=== PATIENT | female | born 1950 | race Caucasian/White ===

== ENCOUNTER 2019-04-14 13:12 | Observation (INO) ==
[2019-04-14] MEDS ORDERED: Ondansetron 4 MG/2 ML VIAL ONE (13:43)
[2019-04-14] MEDS ORDERED: Ondansetron 4 MG/2 ML VIAL IVP ONE (13:46)
[2019-04-14 13:50] LABS: Basophils # 0.1 K/mcL (0.0-0.2); Basophils % 0.7 %; Eosinophils # 0.1 K/mcL (0.0-0.6); Eosinophils % 0.9 %; Hematocrit 47.1 % (35.3-44.9); Hemoglobin 15.4 g/dL (11.5-15.4); Immature Granulocytes % 0.5 % (0-4); Lymphocytes # 2.2 K/mcL (0.6-4.6); Mean Corpuscular HGB Conc 32.7 g/dL (31.6-35.5); Mean Corpuscular Hemoglobin 29.1 pg (28.0-33.3); Mean Platelet Volume 11.4 fL (9.4-12.4); Monocytes # 0.7 K/mcL (0.0-1.3); Monocytes % 5.9 %; Platelet Count 287 K/mcL (140-400); Red Blood Count 5.29 M/mcL (3.82-4.97); Red Cell Distribution Width 14.2 % (11.5-14.5); White Blood Count 12.1 K/mcL (4.3-11.1)
[2019-04-14] MEDS: 0.9 % Sodium Chloride 1,000 ML IVC SCH ×2 (14:11→15:25)
[2019-04-14 14:27] LABS: BUN/Creatinine Ratio 17 (6-26); Blood Urea Nitrogen 16 mg/dL (8-23); Calcium 10.3 mg/dL (8.6-10.3); Carbon Dioxide 27 mEq/L (23-29); Chloride 99 mEq/L (98-107); Glucose 270 mg/dL (70-105); Osmolality,Calculated 291 (280-300); Potassium 4.3 mEq/L (3.5-5.1); Sodium 135 mEq/L (136-145); eGFR For African Americans > 60 (> 60); eGFR For Non-African Americans 59 (> 60)
[2019-04-14 14:37] LABS: Troponin I 0.03 ng/mL (< 0.04)
[2019-04-14 15:01] LABS: Bilirubin,Urine Negative (Negative); Blood,Urine Negative (Negative); Clarity,Urine Cloudy (Clear); Color,Urine Yellow (Yellow); Glucose,Urine (UA) 250 mg/dL (Normal); Ketones,Urine 15 mg/dL (Negative); Leukocyte Esterase,Urine Negative (Negative); Nitrite,Urine Negative (Negative); Protein,Urine 100 mg/dL (Neg-Trace); Specific Gravity,Urine 1.029 (1.010-1.025); Urobilinogen,Urine Normal (Normal)
[2019-04-14 15:04] LABS: Hyaline Casts,Urine None Seen per lpf (None-Few); Squamous Epithelial Cell,Urine Many per lpf (None-Few)
[2019-04-14] MEDS ORDERED: Ondansetron 4 MG/2 ML VIAL IVP STA (15:17)
[2019-04-14 15:23] LABS: Bacteria,Urine Few per hpf (None-Few)
[2019-04-14 15:24] LABS: RBC,Urine 0-3 per hpf (0-3)
[2019-04-14] MEDS ORDERED: *HR* Promethazine 25 MG/ML VIAL IVP ONE (16:35)
[2019-04-14] MEDS ORDERED: 0.9 % Sodium Chloride 1,000 ML IVC ONE (16:35)
[2019-04-14] MEDS ORDERED: *HR* HYDROcodone/Acet 10/325 mg TABLET PO ONE ×2 (16:40→20:12)
[2019-04-14] MEDS ORDERED: Naloxone 0.4 MG/ML INJ IVP PRN (18:00)
[2019-04-14] MEDS ORDERED: tiZANidine 4 MG TABLET PO PRN (18:02)
[2019-04-14] MEDS ORDERED: *HR* Labetalol 20 MG/4 ML SYRINGE IVP ONE (18:03)
[2019-04-14] MEDS ORDERED: Ondansetron 4 MG/2 ML VIAL IVP PRN (18:05)
[2019-04-14] MEDS: Gabapentin 400 MG CAPSULE PO SCH (20:08)
[2019-04-14] MEDS ORDERED: Perflutren Lipid Microsphere 1.3 ML in 0.9 % Sodium Chloride 8.7 ML IVP ONE (20:30)
[2019-04-14] MEDS: *HR* Heparin 5,000 UNIT/ML VIAL SQ SCH (21:11)
[2019-04-15] MEDS ORDERED: Methyl Salicylate/Menthol 28 GM TUBE TP ONE (01:18)
[2019-04-15] MEDS ORDERED: Trolamine Salicylate/Aloe Vera 35.4 GM TUBE TP ONE (02:00)
[2019-04-15] MEDS ORDERED: *HR* HYDROcodone/Acet 10/325 mg TABLET PO ONE (04:31)
[2019-04-15] MEDS: *HR* Heparin 5,000 UNIT/ML VIAL SQ SCH ×2 (04:47→14:19)
[2019-04-15 05:35] LABS: Basophils # 0.1 K/mcL (0.0-0.2); Basophils % 0.6 %; Eosinophils % 0.3 %; Hematocrit 40.1 % (35.3-44.9); Immature Granulocytes % 0.4 % (0-4); Lymphocytes # 3.4 K/mcL (0.6-4.6); Lymphocytes % 25.7 %; Mean Corpuscular HGB Conc 31.9 g/dL (31.6-35.5); Mean Corpuscular Hemoglobin 29.2 pg (28.0-33.3); Mean Corpuscular Volume 91.3 fL (83.0-100.0); Mean Platelet Volume 11.4 fL (9.4-12.4); Monocytes # 1.2 K/mcL (0.0-1.3); Monocytes % 8.8 %; Neutrophils # 8.5 K/mcL (1.6-8.9); Platelet Count 257 K/mcL (140-400); Red Blood Count 4.39 M/mcL (3.82-4.97); Red Cell Distribution Width 14.2 % (11.5-14.5); Segmented Neutrophils % 64.2 %; White Blood Count 13.2 K/mcL (4.3-11.1)
[2019-04-15 05:42] LABS: Hemoglobin 12.8 g/dL (11.5-15.4)
[2019-04-15 05:44] LABS: BUN/Creatinine Ratio 15 (6-26); Blood Urea Nitrogen 12 mg/dL (8-23); Calcium 8.9 mg/dL (8.6-10.3); Carbon Dioxide 22 mEq/L (23-29); Chloride 103 mEq/L (98-107); Glucose 237 mg/dL (70-105); Osmolality,Calculated 291 (280-300); Potassium 3.7 mEq/L (3.5-5.1); Sodium 137 mEq/L (136-145); eGFR For African Americans > 60 (> 60); eGFR For Non-African Americans > 60 (> 60)
[2019-04-15 05:48] LABS: Troponin I 0.04 ng/mL (< 0.04)
[2019-04-15] MEDS ORDERED: *HR* HYDROcodone/Acet 10/325 mg TABLET PO PRN (09:20)
[2019-04-15] MEDS: Gabapentin 400 MG CAPSULE PO SCH ×2 (09:34→15:04)
[2019-04-15] MEDS ORDERED: Cefdinir 300 MG CAPSULE PO SCH (10:05)
[2019-04-15] MEDS ORDERED: amLODIPine 5 MG TABLET PO SCH (10:09)
[2019-04-15] MEDS ORDERED: Insulin LISPRO 300 UNITS/3 ML VIAL SQ SCH (11:30)
[2019-04-15 12:23] VITALS: BP 172/72
== END 2019-04-15 15:45 | disposition home or self-care (01) ==
LOC: EMEROOARM 13:12 → 3ANU 13:12 → SUATTDRO 17:23 → 3ANU 18:20
PROVIDERS: ADMIT Internal Medicine; ATTEND Internal Medicine

== ENCOUNTER 2020-02-24 13:59 | Inpatient (IN) ==
[2020-02-24 14:56] LABS: Basophils # 0.1 K/mcL (0.0-0.2); Eosinophils # 0.4 K/mcL (0.0-0.6); Eosinophils % 3.4 %; Hematocrit 41.8 % (35.3-44.9); Hemoglobin 13.3 g/dL (11.5-15.4); Immature Granulocytes % 0.6 % (0-4); Lymphocytes # 3.1 K/mcL (0.6-4.6); Mean Corpuscular HGB Conc 31.8 g/dL (31.6-35.5); Mean Corpuscular Hemoglobin 29.4 pg (28.0-33.3); Mean Corpuscular Volume 92.5 fL (83.0-100.0); Mean Platelet Volume 10.6 fL (9.4-12.4); Monocytes # 0.9 K/mcL (0.0-1.3); Monocytes % 8.5 %; Neutrophils # 5.8 K/mcL (1.6-8.9); Platelet Count 262 K/mcL (140-400); Red Blood Count 4.52 M/mcL (3.82-4.97); Red Cell Distribution Width 14.1 % (11.5-14.5); Segmented Neutrophils % 56.5 %; White Blood Count 10.3 K/mcL (4.3-11.1)
[2020-02-24 15:03] LABS: Activated Partial Thrombo Time 30.4 Seconds (26.0-36.0)
[2020-02-24 15:24] LABS: Troponin I 0.04 ng/mL (< 0.04)
[2020-02-24 15:32] LABS: BUN/Creatinine Ratio 19 (6-26); Blood Urea Nitrogen 13 mg/dL (8-23); Calcium 9.2 mg/dL (8.6-10.3); Carbon Dioxide 27 mEq/L (23-29); Chloride 103 mEq/L (98-107); Glucose 137 mg/dL (70-105); Osmolality,Calculated 290 (280-300); Potassium 4.1 mEq/L (3.5-5.1); Sodium 139 mEq/L (136-145); eGFR For African Americans > 60 (> 60); eGFR For Non-African Americans > 60 (> 60)
[2020-02-24] MEDS ORDERED: Naloxone 0.4 MG/ML INJ IVP PRN (16:45)
[2020-02-24 16:47] LABS: Bacteria,Urine Few per hpf (None-Few); Bilirubin,Urine Negative (Negative); Blood,Urine Negative (Negative); Clarity,Urine Clear (Clear); Color,Urine Yellow (Yellow); Glucose,Urine (UA) Normal (Normal); Ketones,Urine Negative (Negative); Leukocyte Esterase,Urine Negative (Negative); Mucus,Urine Few per lpf (None-Few); Nitrite,Urine Negative (Negative); Protein,Urine 30 mg/dL (Neg-Trace); RBC,Urine 0-3 per hpf (0-3); Squamous Epithelial Cell,Urine Few per hpf (None-Few); Urobilinogen,Urine Normal (Normal); WBC,Urine 0-3 per hpf (0-3)
[2020-02-24] MEDS ORDERED: D5% in Water 1,000 ML IVC PRN (16:47)
[2020-02-24] MEDS ORDERED: *HR* Dextrose 50 % in Water (Vial) 50 ML VIAL IVP PRN (16:47)
[2020-02-24] MEDS ORDERED: Dextrose Gel 15 GM/37.5 ML TUBE PO PRN ×2 (16:47)
[2020-02-24] MEDS ORDERED: *HR* Labetalol 20 MG/4 ML SYRINGE IVP ONE (16:48)
[2020-02-24] MEDS: Insulin LISPRO 300 UNITS/3 ML VIAL SQ SCH ×2 (19:27→21:39)
[2020-02-24] MEDS: *HR* OxyCODONE/APAP 10/325 TABLET PO PRN (19:38)
[2020-02-24] MEDS: Aspirin 81 MG TAB.CHEW PO SCH (19:38)
[2020-02-24] MEDS: Nitroglycerin 0.4 MG TAB.SUBL SL PRN ×2 (19:38→22:08)
[2020-02-24] MEDS: amLODIPine 5 MG TABLET PO SCH (19:38)
[2020-02-24] MEDS ORDERED: Insulin DETEMIR 100 UNIT/ML X5UNITS SQ SCH (21:00)
[2020-02-24] MEDS: Ondansetron 4 MG/2 ML VIAL IVP PRN (22:09)
[2020-02-24] MEDS ORDERED: Morphine Sulfate 2 MG/ML SYRINGE IVP ONE (22:31)
[2020-02-24] MEDS ORDERED: Ketorolac 15 MG/ML VIAL IVP ONE (23:24)
[2020-02-25] MEDS ORDERED: Ondansetron 4 MG/2 ML VIAL IVP ONE (02:03)
[2020-02-25] MEDS ORDERED: *HR* Labetalol 20 MG/4 ML SYRINGE IVP ONE (02:07)
[2020-02-25] MEDS ORDERED: Metoclopramide 10 MG/2 ML VIAL IVP ONE (03:13)
[2020-02-25] MEDS ORDERED: Scopolamine Patch 1.5 MG PATCH.TD72 TD ONE (05:20)
[2020-02-25] MEDS ORDERED: *HR* Labetalol 20 MG/4 ML SYRINGE IVP PRN ×2 (06:00→07:54)
[2020-02-25] MEDS: Nitroglycerin 0.4 MG TAB.SUBL SL PRN (06:35)
[2020-02-25] MEDS ORDERED: Regadenoson 0.4 MG/5 ML SYRINGE IVP ONE (06:38)
[2020-02-25] MEDS ORDERED: Morphine Sulfate 2 MG/ML SYRINGE IVP ONE (06:52)
[2020-02-25] MEDS: lisinopriL 20 MG TABLET PO SCH (08:07)
[2020-02-25] MEDS: amLODIPine 5 MG TABLET PO SCH (08:07)
[2020-02-25] MEDS: Aspirin 81 MG TAB.CHEW PO SCH (08:07)
[2020-02-25] MEDS: Insulin LISPRO 300 UNITS/3 ML VIAL SQ SCH ×4 (08:12→20:40)
[2020-02-25 08:39] LABS: Basophils # 0.1 K/mcL (0.0-0.2); Basophils % 0.5 %; Hematocrit 42.6 % (35.3-44.9); Hemoglobin 13.6 g/dL (11.5-15.4); Immature Granulocytes % 0.8 % (0-4); Lymphocytes # 1.6 K/mcL (0.6-4.6); Lymphocytes % 12.7 %; Mean Corpuscular HGB Conc 31.9 g/dL (31.6-35.5); Mean Corpuscular Hemoglobin 28.8 pg (28.0-33.3); Mean Corpuscular Volume 90.3 fL (83.0-100.0); Mean Platelet Volume 11.1 fL (9.4-12.4); Monocytes # 0.4 K/mcL (0.0-1.3); Monocytes % 3.2 %; Neutrophils # 10.5 K/mcL (1.6-8.9); Platelet Count 274 K/mcL (140-400); Red Blood Count 4.72 M/mcL (3.82-4.97); Red Cell Distribution Width 13.9 % (11.5-14.5); Segmented Neutrophils % 82.8 %; White Blood Count 12.7 K/mcL (4.3-11.1)
[2020-02-25 08:56] LABS: Estimated Average Glucose 243 mg/dl; Hemoglobin A1C 10.1 %
[2020-02-25 09:34] LABS: BUN/Creatinine Ratio 16 (6-26); Blood Urea Nitrogen 12 mg/dL (8-23); Calcium 9.6 mg/dL (8.6-10.3); Carbon Dioxide 19 mEq/L (23-29); Chloride 99 mEq/L (98-107); Glucose 339 mg/dL (70-105); Magnesium 1.7 mg/dL (1.6-2.6); Osmolality,Calculated 293 (280-300); Phosphorous 2.5 mg/dL (2.7-4.5); Sodium 135 mEq/L (136-145); Thyroid Stimulating Hormone 1.554 mcIU/mL (0.340-5.600); Troponin I 0.05 ng/mL (< 0.04); eGFR For African Americans > 60 (> 60); eGFR For Non-African Americans > 60 (> 60)
[2020-02-25] MEDS ORDERED: Perflutren Lipid Microsphere 1.3 ML in 0.9 % Sodium Chloride 8.7 ML IVP ONE ×2 (09:52→18:01)
[2020-02-25] MEDS ORDERED: Isovue-370 500 ML BOTTLE IVP ONE (11:11)
[2020-02-25] MEDS: Metoprolol XL (24 HR) Succ 25 MG TAB.ER.24H PO SCH (11:28)
[2020-02-25] MEDS: *HR* OxyCODONE/APAP 10/325 TABLET PO PRN ×2 (11:28→17:40)
[2020-02-25] MEDS: Insulin DETEMIR 100 UNIT/ML X5UNITS SQ SCH ×2 (11:28→20:40)
[2020-02-25] MEDS: Nitroglycerin 1 INCH/GM PACKET TP SCH ×2 (11:29→12:23)
[2020-02-25] MEDS: Ondansetron 4 MG/2 ML VIAL IVP PRN ×2 (11:29→20:40)
[2020-02-25] MEDS ORDERED: *HR* Promethazine 25 MG/ML VIAL IVP PRN (16:17)
[2020-02-25 17:26] LABS: Amphetamine Screen,Urine Negative ng/mL (Cutoff=1000); Barbiturate Screen,Urine Negative ng/mL (Cutoff=200); Benzodiazepines Screen,Urine Negative ng/mL (Cutoff=200); Cannabinoid Screen,Urine Negative ng/mL (Cutoff = 50); Cocaine Screen,Urine Negative ng/mL (Cutoff= 300); Opiate Screen,Urine Positive ng/mL (Cutoff=300); Phencyclidine Screen,Urine Negative ng/mL (Cutoff=25)
[2020-02-25] MEDS: Pantoprazole 40 MG VIAL IVP SCH (17:48)
[2020-02-25] MEDS ORDERED: Acetaminophen 325 MG TABLET PO PRN (20:12)
[2020-02-25] MEDS: Gabapentin 400 MG CAPSULE PO SCH (20:41)
[2020-02-25] MEDS: rOPINIRole 0.25 MG TABLET PO SCH (20:41)
[2020-02-25] MEDS: *HR* Heparin 5,000 UNIT/ML VIAL SQ SCH (21:54)
[2020-02-26] MEDS ORDERED: Ondansetron 4 MG/2 ML VIAL IVP PRN (01:25)
[2020-02-26] MEDS ORDERED: Morphine Sulfate 2 MG/ML SYRINGE IVP ONE (01:25)
[2020-02-26 03:52] LABS: Basophils # 0.1 K/mcL (0.0-0.2); Basophils % 0.4 %; Eosinophils % 0.1 %; Hematocrit 40.2 % (35.3-44.9); Hemoglobin 12.5 g/dL (11.5-15.4); Immature Granulocytes % 0.7 % (0-4); Lymphocytes # 2.9 K/mcL (0.6-4.6); Mean Corpuscular HGB Conc 31.1 g/dL (31.6-35.5); Mean Corpuscular Hemoglobin 28.3 pg (28.0-33.3); Mean Corpuscular Volume 91.2 fL (83.0-100.0); Mean Platelet Volume 11.1 fL (9.4-12.4); Monocytes # 1.3 K/mcL (0.0-1.3); Monocytes % 9.4 %; Neutrophils # 9.4 K/mcL (1.6-8.9); Platelet Count 286 K/mcL (140-400); Red Blood Count 4.41 M/mcL (3.82-4.97); Red Cell Distribution Width 14.3 % (11.5-14.5); Segmented Neutrophils % 68.4 %; White Blood Count 13.8 K/mcL (4.3-11.1)
[2020-02-26 04:10] LABS: BUN/Creatinine Ratio 23 (6-26); Blood Urea Nitrogen 18 mg/dL (8-23); Calcium 9.6 mg/dL (8.6-10.3); Carbon Dioxide 26 mEq/L (23-29); Chloride 97 mEq/L (98-107); Glucose 229 mg/dL (70-105); Magnesium 1.7 mg/dL (1.6-2.6); Osmolality,Calculated 285 (280-300); Potassium 3.8 mEq/L (3.5-5.1); Sodium 133 mEq/L (136-145); eGFR For African Americans > 60 (> 60); eGFR For Non-African Americans > 60 (> 60)
[2020-02-26] MEDS: *HR* Heparin 5,000 UNIT/ML VIAL SQ SCH ×2 (05:21→12:50)
[2020-02-26] MEDS: Aspirin 81 MG TAB.CHEW PO SCH (08:54)
[2020-02-26] MEDS: Gabapentin 400 MG CAPSULE PO SCH ×4 (08:54→21:36)
[2020-02-26] MEDS: *HR* OxyCODONE/APAP 10/325 TABLET PO PRN ×3 (08:54→22:14)
[2020-02-26] MEDS: Isosorbide MONOnitrate (24 HR) 30 MG TAB.ER.24H PO SCH (08:55)
[2020-02-26] MEDS: Ondansetron 4 MG/2 ML VIAL IVP PRN ×2 (08:55→15:50)
[2020-02-26] MEDS: Metoprolol XL (24 HR) Succ 25 MG TAB.ER.24H PO SCH (08:55)
[2020-02-26] MEDS: amLODIPine 5 MG TABLET PO SCH (08:55)
[2020-02-26] MEDS: Pantoprazole 40 MG VIAL IVP SCH (08:55)
[2020-02-26] MEDS: lisinopriL 20 MG TABLET PO SCH (08:55)
[2020-02-26] MEDS: Insulin LISPRO 300 UNITS/3 ML VIAL SQ SCH ×4 (08:56→21:42)
[2020-02-26] MEDS: Insulin DETEMIR 100 UNIT/ML X5UNITS SQ SCH (09:15)
[2020-02-26] MEDS ORDERED: polyethylene glycoL 3350 17 GM POWD.PACK PO ONE (15:20)
[2020-02-26] MEDS ORDERED: Insulin DETEMIR 100 UNIT/ML X5UNITS SQ SCH (21:00)
[2020-02-26] MEDS: rOPINIRole 0.25 MG TABLET PO SCH (21:36)
[2020-02-27 02:58] LABS: Basophils # 0.1 K/mcL (0.0-0.2); Basophils % 0.9 %; Eosinophils # 0.2 K/mcL (0.0-0.6); Eosinophils % 1.3 %; Hematocrit 37.9 % (35.3-44.9); Hemoglobin 12.2 g/dL (11.5-15.4); Immature Granulocytes % 0.4 % (0-4); Lymphocytes # 4.5 K/mcL (0.6-4.6); Mean Corpuscular HGB Conc 32.2 g/dL (31.6-35.5); Mean Corpuscular Hemoglobin 29.8 pg (28.0-33.3); Mean Corpuscular Volume 92.4 fL (83.0-100.0); Mean Platelet Volume 10.8 fL (9.4-12.4); Monocytes # 1.3 K/mcL (0.0-1.3); Neutrophils # 5.5 K/mcL (1.6-8.9); Platelet Count 249 K/mcL (140-400); Segmented Neutrophils % 47.4 %; White Blood Count 11.6 K/mcL (4.3-11.1)
[2020-02-27 03:13] LABS: BUN/Creatinine Ratio 28 (6-26); Blood Urea Nitrogen 30 mg/dL (8-23); Calcium 9.4 mg/dL (8.6-10.3); Carbon Dioxide 27 mEq/L (23-29); Chloride 98 mEq/L (98-107); Glucose 266 mg/dL (70-105); Osmolality,Calculated 291 (280-300); Potassium 3.8 mEq/L (3.5-5.1); Sodium 133 mEq/L (136-145); eGFR For African Americans > 60 (> 60); eGFR For Non-African Americans 50 (> 60)
[2020-02-27 03:14] LABS: Troponin I 0.12 ng/mL (< 0.04)
[2020-02-27] MEDS: *HR* OxyCODONE/APAP 10/325 TABLET PO PRN (04:46)
[2020-02-27] MEDS: Pantoprazole 40 MG VIAL IVP SCH (08:24)
[2020-02-27] MEDS: Insulin LISPRO 300 UNITS/3 ML VIAL SQ SCH ×2 (08:26→12:49)
[2020-02-27] MEDS: Gabapentin 400 MG CAPSULE PO SCH ×2 (08:27→12:49)
[2020-02-27] MEDS: Metoprolol XL (24 HR) Succ 25 MG TAB.ER.24H PO SCH (08:34)
[2020-02-27] MEDS: Aspirin 81 MG TAB.CHEW PO SCH (08:34)
[2020-02-27] MEDS: lisinopriL 20 MG TABLET PO SCH (08:34)
[2020-02-27] MEDS: amLODIPine 5 MG TABLET PO SCH (08:34)
[2020-02-27] MEDS: Isosorbide MONOnitrate (24 HR) 30 MG TAB.ER.24H PO SCH (08:34)
[2020-02-27] MEDS ORDERED: Insulin DETEMIR 100 UNIT/ML X5UNITS SQ SCH (09:00)
[2020-02-27] MEDS ORDERED: 0.9 % Sodium Chloride 500 ML IVC SCH (10:30)
[2020-02-27] MEDS ORDERED: Lidocaine -MPF 2% 2 ML VIAL ONE (11:04)
[2020-02-27] MEDS ORDERED: *HR* Propofol 200 MG/20 ML VIAL IVP ONE (11:04)
[2020-02-27 14:05] VITALS: BP 121/68
== END 2020-02-27 16:56 | disposition home or self-care (01) | DRG 381 ==
LOC: EMEROOARM 13:59 → 3ANU 13:59 → SUATTDRO 17:57 → 3ANU 18:54
PROVIDERS: ADMIT Pharmacist; ATTEND Internal Medicine
PROC: ENDOEBX (2020-02-27 11:25)

== ENCOUNTER 2021-06-23 02:18 | Inpatient (IN) ==
[2021-06-23 03:27] LABS: Bacteria,Urine Few per hpf (None-Few); Bilirubin,Urine Negative (Negative); Blood,Urine Small (Negative); Clarity,Urine Clear (Clear); Color,Urine Light-Yellow (Yellow); Glucose,Urine (UA) >=1000 mg/dL (Normal); Ketones,Urine 40 mg/dL (Negative); Leukocyte Esterase,Urine Negative (Negative); Nitrite,Urine Negative (Negative); Protein,Urine >=300 mg/dL (Neg-Trace); RBC,Urine 0-3 per hpf (0-3); Specific Gravity,Urine > 1.030 (1.010-1.025); Squamous Epithelial Cell,Urine Moderate per hpf (None-Few); Urobilinogen,Urine Normal (Normal)
[2021-06-23 03:28] LABS: Basophils % 0.3 %; Eosinophils % 0.1 %; Hematocrit 50.7 % (35.3-44.9); Hemoglobin 16.8 g/dL (11.5-15.4); Immature Granulocytes % 0.7 % (0-4); Lymphocytes # 1.9 K/mcL (0.6-4.6); Lymphocytes % 12.4 %; Mean Corpuscular HGB Conc 33.1 g/dL (31.6-35.5); Mean Corpuscular Hemoglobin 28.8 pg (28.0-33.3); Mean Platelet Volume 11.5 fL (9.4-12.4); Monocytes # 0.5 K/mcL (0.0-1.3); Neutrophils # 12.5 K/mcL (1.6-8.9); Platelet Count 314 K/mcL (140-400); Red Blood Count 5.83 M/mcL (3.82-4.97); Red Cell Distribution Width 14.2 % (11.5-14.5); Segmented Neutrophils % 83.5 %; White Blood Count 14.9 K/mcL (4.3-11.1)
[2021-06-23] MEDS ORDERED: Isovue-370 500 ML BOTTLE IVP ONE ×2 (03:29→11:02)
[2021-06-23 03:45] LABS: Alanine Aminotransferase 19 Units/L (7-52); Albumin 4.5 g/dL (3.5-5.7); Albumin/Globulin Ratio 1.2 (1.1-2.2); Alkaline Phosphatase 79 Units/L (34-104); Amylase 19 Units/L (29-103); Aspartate Amino Transferase 23 Units/L (13-39); BUN/Creatinine Ratio 21 (6-26); Bilirubin,Direct 0.1 mg/dL (0.0-0.2); Bilirubin,Indirect 0.5 mg/dL (0.0-1.0); Bilirubin,Total 0.6 mg/dL (0.3-1.0); Blood Urea Nitrogen 19 mg/dL (8-23); Calcium 9.8 mg/dL (8.6-10.3); Carbon Dioxide 26 mEq/L (23-29); Chloride 97 mEq/L (98-107); Globulin 3.7 g/dL (2.4-3.5); Glucose 388 mg/dL (70-105); Lipase 13 Units/L (11-82); Osmolality,Calculated 300 (280-300); Potassium 3.8 mEq/L (3.5-5.1); Sodium 136 mEq/L (136-145); Total Protein 8.2 g/dL (6.4-8.9); eGFR For African Americans > 60 (> 60); eGFR For Non-African Americans > 60 (> 60)
[2021-06-23] MEDS ORDERED: Morphine Sulfate 2 MG/ML SYRINGE IVP ONE ×2 (03:48→06:28)
[2021-06-23] MEDS ORDERED: Ondansetron 4 MG/2 ML VIAL IVP PRN (03:55)
[2021-06-23] MEDS ORDERED: Ondansetron 4 MG/2 ML VIAL IVP ONE (06:29)
[2021-06-23] MEDS ORDERED: 0.9 % Sodium Chloride 500 ML IVC ONE (08:37)
[2021-06-23] MEDS ORDERED: *HR* LORazepam 2 MG/ML VIAL IVP STA (08:50)
[2021-06-23] MEDS ORDERED: cefTRIAXone 1,000 MG in 0.9 % Sodium Chloride Mini Bag 100 ML IVPB ONE (09:41)
[2021-06-23] MEDS ORDERED: 0.9 % Sodium Chloride 1,000 ML IVC ONE (09:43)
[2021-06-23] MEDS ORDERED: *HR* HYDROmorphone (PF) 1 MG/ML SYRINGE IVP ONE (10:21)
[2021-06-23 10:40] LABS: Amphetamine Screen,Urine Negative ng/mL (Cutoff=1000); Barbiturate Screen,Urine Negative ng/mL (Cutoff=200); Benzodiazepines Screen,Urine Negative ng/mL (Cutoff=200); Cannabinoid Screen,Urine Positive ng/mL (Cutoff = 50); Cocaine Screen,Urine Negative ng/mL (Cutoff= 300); Opiate Screen,Urine Positive ng/mL (Cutoff=300); Phencyclidine Screen,Urine Negative ng/mL (Cutoff=25)
[2021-06-23] MEDS ORDERED: Furosemide 20 MG/2 ML VIAL IVP ONE (10:47)
[2021-06-23 12:10] LABS: INR 1.1
[2021-06-23 12:13] LABS: Activated Partial Thrombo Time 31.9 Seconds (26.0-36.0)
[2021-06-23 13:50] LABS: Influenza A PCR Negative (Negative); Influenza B PCR Negative (Negative); Resp. Syncytial Virus PCR Negative (Negative); SARS-CoV-2 by PCR (In House) Negative (Negative)
[2021-06-23] MEDS ORDERED: Azithromycin 500 MG in 0.9 % Sodium Chloride 250 ML IVPB STA (13:55)
[2021-06-23] MEDS ORDERED: 0.9 % Sodium Chloride 250 ML IVC ONE (14:16)
[2021-06-23] MEDS ORDERED: Naloxone 0.4 MG/ML INJ IVP PRN (14:51)
[2021-06-23] MEDS ORDERED: 0.9 % Sodium Chloride 1,000 ML IVC SCH (15:00)
[2021-06-23] MEDS ORDERED: *HR* Dextrose 50 % in Water (Syg) 50 ML SYRINGE IVP PRN (15:10)
[2021-06-23] MEDS ORDERED: D5% in Water 1,000 ML IVC PRN (15:10)
[2021-06-23] MEDS ORDERED: Dextrose Gel 15 GM/37.5 ML TUBE PO PRN ×2 (15:10)
[2021-06-23 15:20] LABS: Magnesium 1.9 mg/dL (1.6-2.6); Phosphorous 4.9 mg/dL (2.7-4.5); Thyroid Stimulating Hormone 1.878 mcIU/mL (0.340-5.600); Troponin I 2.83 ng/mL (< 0.04)
[2021-06-23] MEDS ORDERED: *HR* Heparin 5,000 UNIT/ML VIAL IVP ONE (15:24)
[2021-06-23] MEDS ORDERED: *HR* Heparin 5,000 UNIT/ML VIAL IVP PRN ×2 (15:24)
[2021-06-23] MEDS ORDERED: Insulin LISPRO 300 UNITS/3 ML VIAL SUBQ SCH ×2 (16:30→21:00)
[2021-06-23 16:39] LABS: Hematocrit 51.6 % (35.3-44.9); Hemoglobin 17.1 g/dL (11.5-15.4); Mean Corpuscular HGB Conc 33.1 g/dL (31.6-35.5); Mean Corpuscular Hemoglobin 29.7 pg (28.0-33.3); Mean Corpuscular Volume 89.7 fL (83.0-100.0); Mean Platelet Volume 11.5 fL (9.4-12.4); Platelet Count 342 K/mcL (140-400); Red Blood Count 5.75 M/mcL (3.82-4.97); Red Cell Distribution Width 14.7 % (11.5-14.5)
[2021-06-23] MEDS: Heparin 25,000UNIT/250ML 1/2NS 25,000 UNIT/250 ML IV.SOLN IVC SCH (16:39)
[2021-06-23 16:40] LABS: White Blood Count 23.9 K/mcL (4.3-11.1)
[2021-06-23 16:50] LABS: INR 1.1
[2021-06-23 16:53] LABS: Heparin anti-factor XA UFH < 0.04 IU/mL (0.30-0.70)
[2021-06-23] MEDS: *HR* LORazepam 2 MG/ML VIAL IVP PRN (19:07)
[2021-06-23] MEDS ORDERED: Insulin LISPRO 300 UNITS/3 ML VIAL SUBQ STA (19:18)
[2021-06-23] MEDS: Insulin LISPRO 300 UNITS/3 ML VIAL SUBQ SCH (20:04)
[2021-06-23] MEDS: Insulin DETEMIR 100 UNIT/ML X5UNITS SUBQ SCH (21:14)
[2021-06-23] MEDS: Metoprolol XL (24 HR) Succ 25 MG TAB.ER.24H PO SCH (22:17)
[2021-06-23] MEDS: rOPINIRole 1 MG TABLET PO SCH (22:17)
[2021-06-23] MEDS: Gabapentin 400 MG CAPSULE PO SCH (22:17)
[2021-06-23] MEDS: Ondansetron 4 MG/2 ML VIAL IVP PRN (23:19)
[2021-06-24] MEDS: *HR* OxyCODONE Oral Soln 5 MG/5 ML UD.LIQ PO PRN ×3 (00:05→16:40)
[2021-06-24] MEDS: *HR* LORazepam 2 MG/ML VIAL IVP PRN ×4 (02:03→22:56)
[2021-06-24 05:20] LABS: Basophils % 0.1 %; Hematocrit 50.6 % (35.3-44.9); Hemoglobin 16.6 g/dL (11.5-15.4); Immature Granulocytes % 1.1 % (0-4); Lymphocytes # 2.5 K/mcL (0.6-4.6); Lymphocytes % 9.2 %; Mean Corpuscular HGB Conc 32.8 g/dL (31.6-35.5); Mean Corpuscular Hemoglobin 29.3 pg (28.0-33.3); Mean Corpuscular Volume 89.4 fL (83.0-100.0); Mean Platelet Volume 11.4 fL (9.4-12.4); Monocytes # 2.9 K/mcL (0.0-1.3); Monocytes % 10.5 %; Neutrophils # 21.6 K/mcL (1.6-8.9); Platelet Count 328 K/mcL (140-400); Red Blood Count 5.66 M/mcL (3.82-4.97); Segmented Neutrophils % 79.1 %; White Blood Count 27.3 K/mcL (4.3-11.1)
[2021-06-24 05:41] LABS: Calcium 9.2 mg/dL (8.6-10.3); Potassium 3.7 mEq/L (3.5-5.1)
[2021-06-24] MEDS ORDERED: *HR* Metoprolol 5 MG/5 ML VIAL IVP ONE ×3 (07:44→16:31)
[2021-06-24] MEDS: Isosorbide MONOnitrate (24 HR) 60 MG TAB.ER.24H PO SCH ×2 (07:51→10:30)
[2021-06-24] MEDS: Gabapentin 400 MG CAPSULE PO SCH ×4 (07:51→20:44)
[2021-06-24] MEDS: Aspirin Enteric Coated 81 MG Tablet PO SCH ×2 (07:51→10:30)
[2021-06-24] MEDS: Metoprolol XL (24 HR) Succ 25 MG TAB.ER.24H PO SCH ×3 (07:52→20:44)
[2021-06-24] MEDS: lisinopriL 20 MG TABLET PO SCH ×2 (07:52→10:30)
[2021-06-24] MEDS: cefTRIAXone 1,000 MG in 0.9 % Sodium Chloride Mini Bag 100 ML IVPB SCH (07:52)
[2021-06-24] MEDS: Insulin LISPRO 300 UNITS/3 ML VIAL SUBQ SCH ×4 (08:10→20:31)
[2021-06-24] MEDS: Insulin DETEMIR 100 UNIT/ML X5UNITS SUBQ SCH ×2 (08:16→20:42)
[2021-06-24] MEDS ORDERED: Perflutren Lipid Microsphere 1.3 ML in 0.9 % Sodium Chloride 8.7 ML IVP PRN (08:29)
[2021-06-24] MEDS ORDERED: *HR* Metoprolol 5 MG/5 ML VIAL IVP PRN (14:41)
[2021-06-24] MEDS: Nystatin POWDER 30 GM BOTTLE TP SCH ×2 (14:58→20:44)
[2021-06-24] MEDS: Heparin 25,000UNIT/250ML 1/2NS 25,000 UNIT/250 ML IV.SOLN IVC SCH (17:01)
[2021-06-24] MEDS: Azithromycin 500 MG in 0.9 % Sodium Chloride 250 ML IVPB SCH (17:36)
[2021-06-24] MEDS ORDERED: *HR* LORazepam 2 MG/ML VIAL IVP ONE (18:59)
[2021-06-24] MEDS: rOPINIRole 1 MG TABLET PO SCH (20:44)
[2021-06-25] MEDS ORDERED: *HR* LORazepam 2 MG/ML VIAL IVP ONE (01:44)
[2021-06-25] MEDS: *HR* LORazepam 2 MG/ML VIAL IVP PRN ×2 (05:15→11:55)
[2021-06-25 06:14] LABS: Basophils % 0.2 %; Hematocrit 48.3 % (35.3-44.9); Hemoglobin 15.5 g/dL (11.5-15.4); Immature Granulocytes % 0.8 % (0-4); Lymphocytes # 2.2 K/mcL (0.6-4.6); Lymphocytes % 10.2 %; Mean Corpuscular HGB Conc 32.1 g/dL (31.6-35.5); Mean Corpuscular Hemoglobin 29.1 pg (28.0-33.3); Mean Corpuscular Volume 90.6 fL (83.0-100.0); Mean Platelet Volume 11.4 fL (9.4-12.4); Monocytes # 2.6 K/mcL (0.0-1.3); Neutrophils # 16.9 K/mcL (1.6-8.9); Platelet Count 272 K/mcL (140-400); Red Blood Count 5.33 M/mcL (3.82-4.97); Red Cell Distribution Width 15.3 % (11.5-14.5); Segmented Neutrophils % 76.8 %
[2021-06-25 06:21] LABS: BUN/Creatinine Ratio 37 (6-26); Blood Urea Nitrogen 35 mg/dL (8-23); Calcium 9.2 mg/dL (8.6-10.3); Carbon Dioxide 22 mEq/L (23-29); Chloride 115 mEq/L (98-107); Glucose 246 mg/dL (70-105); Osmolality,Calculated 324 (280-300); Potassium 3.7 mEq/L (3.5-5.1); Sodium 149 mEq/L (136-145); eGFR For African Americans > 60 (> 60); eGFR For Non-African Americans 58 (> 60)
[2021-06-25] MEDS: Insulin LISPRO 300 UNITS/3 ML VIAL SUBQ SCH ×4 (09:16→21:17)
[2021-06-25] MEDS: Gabapentin 400 MG CAPSULE PO SCH ×4 (09:27→21:18)
[2021-06-25] MEDS: cefTRIAXone 1,000 MG in 0.9 % Sodium Chloride Mini Bag 100 ML IVPB SCH (09:27)
[2021-06-25] MEDS: lisinopriL 20 MG TABLET PO SCH ×2 (09:27→09:38)
[2021-06-25] MEDS: Isosorbide MONOnitrate (24 HR) 60 MG TAB.ER.24H PO SCH ×2 (09:27→09:38)
[2021-06-25] MEDS: Aspirin Enteric Coated 81 MG Tablet PO SCH ×2 (09:27→09:37)
[2021-06-25] MEDS: Metoprolol XL (24 HR) Succ 25 MG TAB.ER.24H PO SCH ×3 (09:27→21:18)
[2021-06-25] MEDS: Insulin DETEMIR 100 UNIT/ML X5UNITS SUBQ SCH ×2 (09:28→21:17)
[2021-06-25] MEDS: Nystatin POWDER 30 GM BOTTLE TP SCH ×3 (09:28→21:18)
[2021-06-25] MEDS: Potassium Chloride 40 MEQ in D5% in 0.45% NACL 1,000 ML IVC SCH (11:15)
[2021-06-25] MEDS: Ondansetron 4 MG/2 ML VIAL IVP PRN (11:34)
[2021-06-25] MEDS: *HR* Metoprolol 5 MG/5 ML VIAL IVP SCH ×2 (11:42→19:24)
[2021-06-25 14:04] LABS: Bilirubin,Urine Negative (Negative); Blood,Urine Large (Negative); Clarity,Urine Cloudy (Clear); Color,Urine Red (Yellow); Glucose,Urine (UA) 50 mg/dL (Normal); Ketones,Urine Trace mg/dL (Negative); PH,Urine 6.5 pH Units (5.0-8.0)
[2021-06-25 14:05] LABS: Leukocyte Esterase,Urine Negative (Negative); Nitrite,Urine Negative (Negative); Protein,Urine 50 mg/dL (Neg-Trace); Urobilinogen,Urine Normal (Normal)
[2021-06-25 14:37] LABS: Hemoglobin 14.7 g/dL (11.5-15.4)
[2021-06-25] MEDS: *HR* OxyCODONE Oral Soln 5 MG/5 ML UD.LIQ PO PRN (15:52)
[2021-06-25] MEDS: Azithromycin 500 MG in 0.9 % Sodium Chloride 250 ML IVPB SCH (16:02)
[2021-06-25] MEDS: Heparin 25,000UNIT/250ML 1/2NS 25,000 UNIT/250 ML IV.SOLN IVC SCH (16:31)
[2021-06-25] MEDS ORDERED: *HR* LORazepam 2 MG/ML VIAL IVP STA (17:05)
[2021-06-25] MEDS: rOPINIRole 1 MG TABLET PO SCH (21:18)
[2021-06-26] MEDS: *HR* Metoprolol 5 MG/5 ML VIAL IVP SCH ×4 (00:14→18:30)
[2021-06-26] MEDS: Potassium Chloride 40 MEQ in D5% in 0.45% NACL 1,000 ML IVC SCH (00:17)
[2021-06-26] MEDS: *HR* LORazepam 2 MG/ML VIAL IVP PRN ×3 (00:21→14:59)
[2021-06-26] MEDS: *HR* OxyCODONE Oral Soln 5 MG/5 ML UD.LIQ PO PRN (03:20)
[2021-06-26 06:08] LABS: Basophils % 0.2 %; Hematocrit 48.4 % (35.3-44.9); Hemoglobin 15.1 g/dL (11.5-15.4); Immature Granulocytes % 0.9 % (0-4); Lymphocytes # 2.1 K/mcL (0.6-4.6); Lymphocytes % 11.6 %; Mean Corpuscular HGB Conc 31.2 g/dL (31.6-35.5); Mean Corpuscular Hemoglobin 28.9 pg (28.0-33.3); Mean Corpuscular Volume 92.5 fL (83.0-100.0); Mean Platelet Volume 11.7 fL (9.4-12.4); Monocytes # 1.7 K/mcL (0.0-1.3); Monocytes % 9.8 %; Neutrophils # 13.7 K/mcL (1.6-8.9); Nucleated Red Blood Cells 0.6 /100 WBC (0); Platelet Count 237 K/mcL (140-400); Red Blood Count 5.23 M/mcL (3.82-4.97); Red Cell Distribution Width 15.7 % (11.5-14.5); Segmented Neutrophils % 77.5 %; White Blood Count 17.6 K/mcL (4.3-11.1)
[2021-06-26 06:15] LABS: Calcium 8.8 mg/dL (8.6-10.3); Potassium 4.6 mEq/L (3.5-5.1)
[2021-06-26] MEDS: D5% in 0.45% NACL 1,000 ML IVC SCH ×2 (08:33→20:42)
[2021-06-26] MEDS ORDERED: Insulin DETEMIR 100 UNIT/ML X5UNITS SUBQ SCH (09:00)
[2021-06-26] MEDS: Insulin LISPRO 300 UNITS/3 ML VIAL SUBQ SCH ×4 (09:13→20:34)
[2021-06-26] MEDS: Isosorbide MONOnitrate (24 HR) 60 MG TAB.ER.24H PO SCH (09:13)
[2021-06-26] MEDS: Aspirin Enteric Coated 81 MG Tablet PO SCH (09:13)
[2021-06-26] MEDS: Gabapentin 400 MG CAPSULE PO SCH ×3 (09:14→20:34)
[2021-06-26] MEDS: Nystatin POWDER 30 GM BOTTLE TP SCH ×3 (09:14→20:35)
[2021-06-26] MEDS: Metoprolol XL (24 HR) Succ 25 MG TAB.ER.24H PO SCH ×2 (09:15→20:35)
[2021-06-26] MEDS: lisinopriL 20 MG TABLET PO SCH (09:15)
[2021-06-26] MEDS: cefTRIAXone 1,000 MG in 0.9 % Sodium Chloride Mini Bag 100 ML IVPB SCH (09:18)
[2021-06-26] MEDS: Azithromycin 500 MG in 0.9 % Sodium Chloride 250 ML IVPB SCH (18:29)
[2021-06-26] MEDS: Heparin 25,000UNIT/250ML 1/2NS 25,000 UNIT/250 ML IV.SOLN IVC SCH (19:54)
[2021-06-26] MEDS: rOPINIRole 1 MG TABLET PO SCH (20:35)
[2021-06-26] MEDS: Insulin DETEMIR 100 UNIT/ML X5UNITS SUBQ SCH (20:37)
[2021-06-27] MEDS: *HR* Metoprolol 5 MG/5 ML VIAL IVP SCH ×5 (00:25→23:33)
[2021-06-27 06:21] LABS: Basophils % 0.3 %; Hematocrit 48.5 % (35.3-44.9); Immature Granulocytes % 1.7 % (0-4); Lymphocytes # 2.2 K/mcL (0.6-4.6); Lymphocytes % 13.7 %; Mean Corpuscular HGB Conc 30.9 g/dL (31.6-35.5); Mean Corpuscular Hemoglobin 28.8 pg (28.0-33.3); Mean Corpuscular Volume 93.3 fL (83.0-100.0); Mean Platelet Volume 11.9 fL (9.4-12.4); Monocytes # 1.5 K/mcL (0.0-1.3); Monocytes % 9.2 %; Neutrophils # 11.8 K/mcL (1.6-8.9); Platelet Count 220 K/mcL (140-400); Red Cell Distribution Width 15.8 % (11.5-14.5); Segmented Neutrophils % 75.1 %; White Blood Count 15.7 K/mcL (4.3-11.1)
[2021-06-27 06:36] LABS: BUN/Creatinine Ratio 33 (6-26); Blood Urea Nitrogen 35 mg/dL (8-23); Calcium 8.1 mg/dL (8.6-10.3); Carbon Dioxide 22 mEq/L (23-29); Chloride 122 mEq/L (98-107); Glucose 319 mg/dL (70-105); Osmolality,Calculated 338 (280-300); Potassium 4.3 mEq/L (3.5-5.1); Sodium 154 mEq/L (136-145); eGFR For African Americans > 60 (> 60); eGFR For Non-African Americans 52 (> 60)
[2021-06-27] MEDS: Insulin DETEMIR 100 UNIT/ML X5UNITS SUBQ SCH ×2 (08:14→22:54)
[2021-06-27] MEDS: Insulin LISPRO 300 UNITS/3 ML VIAL SUBQ SCH ×5 (08:15→22:54)
[2021-06-27] MEDS: cefTRIAXone 1,000 MG in 0.9 % Sodium Chloride Mini Bag 100 ML IVPB SCH (08:25)
[2021-06-27] MEDS: *HR* LORazepam 2 MG/ML VIAL IVP PRN ×3 (08:25→23:31)
[2021-06-27] MEDS: Aspirin Enteric Coated 81 MG Tablet PO SCH (08:32)
[2021-06-27] MEDS: Isosorbide MONOnitrate (24 HR) 60 MG TAB.ER.24H PO SCH (08:32)
[2021-06-27] MEDS: Nystatin POWDER 30 GM BOTTLE TP SCH ×3 (08:33→22:55)
[2021-06-27] MEDS: Metoprolol XL (24 HR) Succ 25 MG TAB.ER.24H PO SCH ×2 (08:33→22:56)
[2021-06-27] MEDS: lisinopriL 20 MG TABLET PO SCH (08:33)
[2021-06-27] MEDS: Gabapentin 400 MG CAPSULE PO SCH ×3 (08:33→22:55)
[2021-06-27] MEDS: D5% in 0.45% NACL 1,000 ML IVC SCH ×3 (09:09→21:55)
[2021-06-27] MEDS: Thiamine (B-1) 100 MG in 0.9 % Sodium Chloride 50 ML IVPB SCH ×2 (10:56→15:42)
[2021-06-27] MEDS ORDERED: Silver Sulfadiazine 50 GM TUBE TP SCH (13:30)
[2021-06-27] MEDS ORDERED: Saliva Stimulant 44.3ml BOTTLE PO PRN (13:31)
[2021-06-27] MEDS ORDERED: Silver Nitrate Applicator 1 STICK..EA. TP SCH (15:45)
[2021-06-27] MEDS: Azithromycin 500 MG in 0.9 % Sodium Chloride 250 ML IVPB SCH (16:54)
[2021-06-27] MEDS: rOPINIRole 1 MG TABLET PO SCH (22:56)
[2021-06-28 01:39] LABS: Basophils % 0.3 %; Eosinophils # 0.1 K/mcL (0.0-0.6); Eosinophils % 0.6 %; Hematocrit 45.7 % (35.3-44.9); Hemoglobin 14.3 g/dL (11.5-15.4); Immature Granulocytes % 1.2 % (0-4); Lymphocytes % 19.1 %; Mean Corpuscular HGB Conc 31.3 g/dL (31.6-35.5); Mean Corpuscular Hemoglobin 29.4 pg (28.0-33.3); Mean Platelet Volume 11.9 fL (9.4-12.4); Monocytes # 1.6 K/mcL (0.0-1.3); Monocytes % 10.2 %; Neutrophils # 10.9 K/mcL (1.6-8.9); Nucleated Red Blood Cells 1.1 /100 WBC (0); Platelet Count 178 K/mcL (140-400); Red Blood Count 4.86 M/mcL (3.82-4.97); Red Cell Distribution Width 15.5 % (11.5-14.5); Segmented Neutrophils % 68.6 %; White Blood Count 15.9 K/mcL (4.3-11.1)
[2021-06-28 01:59] LABS: BUN/Creatinine Ratio 27 (6-26); Blood Urea Nitrogen 22 mg/dL (8-23); Calcium 7.6 mg/dL (8.6-10.3); Carbon Dioxide 26 mEq/L (23-29); Chloride 121 mEq/L (98-107); Glucose 125 mg/dL (70-105); Osmolality,Calculated 325 (280-300); Potassium 3.1 mEq/L (3.5-5.1); Sodium 155 mEq/L (136-145); eGFR For African Americans > 60 (> 60); eGFR For Non-African Americans > 60 (> 60)
[2021-06-28] MEDS: Thiamine (B-1) 100 MG in 0.9 % Sodium Chloride 50 ML IVPB SCH ×4 (05:23→21:12)
[2021-06-28] MEDS: *HR* Metoprolol 5 MG/5 ML VIAL IVP SCH ×3 (05:36→17:41)
[2021-06-28] MEDS: D5% in 0.45% NACL 1,000 ML IVC SCH (06:38)
[2021-06-28] MEDS ORDERED: *HR* LORazepam 2 MG/ML VIAL IVP ONE (07:00)
[2021-06-28] MEDS ORDERED: Potassium Chloride 40 MEQ, Lidocaine 1% 2 ML in 0.9 % Sodium Chloride 500 ML IVPB ONE (07:06)
[2021-06-28] MEDS: cefTRIAXone 1,000 MG in 0.9 % Sodium Chloride Mini Bag 100 ML IVPB SCH (11:12)
[2021-06-28] MEDS: Metoprolol XL (24 HR) Succ 25 MG TAB.ER.24H PO SCH (11:13)
[2021-06-28] MEDS: lisinopriL 20 MG TABLET PO SCH (11:13)
[2021-06-28] MEDS: Insulin DETEMIR 100 UNIT/ML X5UNITS SUBQ SCH ×2 (11:14→21:14)
[2021-06-28] MEDS: Isosorbide MONOnitrate (24 HR) 60 MG TAB.ER.24H PO SCH (11:14)
[2021-06-28] MEDS: Aspirin Enteric Coated 81 MG Tablet PO SCH (11:14)
[2021-06-28] MEDS: Insulin LISPRO 300 UNITS/3 ML VIAL SUBQ SCH ×4 (11:14→21:10)
[2021-06-28] MEDS: Nystatin POWDER 30 GM BOTTLE TP SCH ×3 (11:15→21:17)
[2021-06-28] MEDS: Gabapentin 400 MG CAPSULE PO SCH ×3 (11:15→21:11)
[2021-06-28] MEDS: *HR* LORazepam 2 MG/ML VIAL IVP PRN (11:26)
[2021-06-28] MEDS: *HR* Heparin 5,000 UNIT/ML VIAL SQ SCH ×2 (14:12→21:15)
[2021-06-28] MEDS: D5% in Water 1,000 ML IVC SCH (14:14)
[2021-06-28] MEDS: rOPINIRole 1 MG TABLET PO SCH (21:12)
[2021-06-29] MEDS: *HR* Metoprolol 5 MG/5 ML VIAL IVP SCH ×5 (00:49→23:09)
[2021-06-29 01:02] LABS: Basophils % 0.3 %; Eosinophils # 0.1 K/mcL (0.0-0.6); Eosinophils % 0.6 %; Hematocrit 46.6 % (35.3-44.9); Hemoglobin 14.5 g/dL (11.5-15.4); Immature Granulocytes % 1.1 % (0-4); Lymphocytes % 19.4 %; Mean Corpuscular HGB Conc 31.1 g/dL (31.6-35.5); Mean Corpuscular Hemoglobin 28.9 pg (28.0-33.3); Mean Corpuscular Volume 92.8 fL (83.0-100.0); Mean Platelet Volume 12.1 fL (9.4-12.4); Monocytes # 1.6 K/mcL (0.0-1.3); Monocytes % 10.2 %; Neutrophils # 10.7 K/mcL (1.6-8.9); Nucleated Red Blood Cells 0.4 /100 WBC (0); Platelet Count 147 K/mcL (140-400); Red Blood Count 5.02 M/mcL (3.82-4.97); Red Cell Distribution Width 15.2 % (11.5-14.5); Segmented Neutrophils % 68.4 %; White Blood Count 15.6 K/mcL (4.3-11.1)
[2021-06-29 01:24] LABS: BUN/Creatinine Ratio 22 (6-26); Blood Urea Nitrogen 17 mg/dL (8-23); Calcium 7.8 mg/dL (8.6-10.3); Carbon Dioxide 27 mEq/L (23-29); Chloride 115 mEq/L (98-107); Glucose 127 mg/dL (70-105); Osmolality,Calculated 313 (280-300); Potassium 3.5 mEq/L (3.5-5.1); Sodium 150 mEq/L (136-145); eGFR For African Americans > 60 (> 60); eGFR For Non-African Americans > 60 (> 60)
[2021-06-29] MEDS: *HR* LORazepam 2 MG/ML VIAL IVP PRN (01:24)
[2021-06-29] MEDS: *HR* Heparin 5,000 UNIT/ML VIAL SQ SCH ×3 (06:17→23:09)
[2021-06-29] MEDS: Insulin LISPRO 300 UNITS/3 ML VIAL SUBQ SCH ×4 (07:44→19:52)
[2021-06-29] MEDS: Thiamine (B-1) 100 MG in 0.9 % Sodium Chloride 50 ML IVPB SCH ×3 (09:56→20:00)
[2021-06-29] MEDS: Nystatin POWDER 30 GM BOTTLE TP SCH ×3 (10:08→20:01)
[2021-06-29] MEDS: lisinopriL 20 MG TABLET PO SCH (10:18)
[2021-06-29] MEDS: Isosorbide MONOnitrate (24 HR) 60 MG TAB.ER.24H PO SCH (10:18)
[2021-06-29] MEDS: Gabapentin 400 MG CAPSULE PO SCH ×3 (10:18→19:33)
[2021-06-29] MEDS: Aspirin Enteric Coated 81 MG Tablet PO SCH (10:18)
[2021-06-29] MEDS: Insulin DETEMIR 100 UNIT/ML X5UNITS SUBQ SCH ×2 (10:18→20:01)
[2021-06-29] MEDS: D5% in Water 1,000 ML IVC SCH ×3 (11:39→19:32)
[2021-06-29] MEDS: rOPINIRole 1 MG TABLET PO SCH (19:33)
[2021-06-30] MEDS: D5% in Water 1,000 ML IVC SCH ×3 (01:55→20:40)
[2021-06-30] MEDS: *HR* Heparin 5,000 UNIT/ML VIAL SQ SCH ×3 (05:48→20:41)
[2021-06-30] MEDS: *HR* Metoprolol 5 MG/5 ML VIAL IVP SCH (05:48)
[2021-06-30] MEDS: Insulin LISPRO 300 UNITS/3 ML VIAL SUBQ SCH ×4 (08:09→20:21)
[2021-06-30] MEDS: Thiamine (B-1) 100 MG in 0.9 % Sodium Chloride 50 ML IVPB SCH (08:57)
[2021-06-30] MEDS: Insulin DETEMIR 100 UNIT/ML X5UNITS SUBQ SCH ×2 (08:58→20:50)
[2021-06-30] MEDS: lisinopriL 20 MG TABLET PO SCH (08:59)
[2021-06-30] MEDS: Gabapentin 400 MG CAPSULE PO SCH ×3 (08:59→20:41)
[2021-06-30] MEDS: Nystatin POWDER 30 GM BOTTLE TP SCH ×3 (09:00→20:41)
[2021-06-30] MEDS: Isosorbide MONOnitrate (24 HR) 60 MG TAB.ER.24H PO SCH (09:00)
[2021-06-30] MEDS: Aspirin Enteric Coated 81 MG Tablet PO SCH (09:00)
[2021-06-30] MEDS: Metoprolol XL (24 HR) Succ 25 MG TAB.ER.24H PO SCH (20:32)
[2021-06-30] MEDS: rOPINIRole 1 MG TABLET PO SCH (20:41)
[2021-07-01 01:34] LABS: Basophils # 0.1 K/mcL (0.0-0.2); Basophils % 0.3 %; Eosinophils # 0.5 K/mcL (0.0-0.6); Eosinophils % 3.3 %; Hematocrit 40.7 % (35.3-44.9); Lymphocytes % 19.8 %; Mean Corpuscular HGB Conc 31.4 g/dL (31.6-35.5); Mean Corpuscular Hemoglobin 29.1 pg (28.0-33.3); Mean Corpuscular Volume 92.5 fL (83.0-100.0); Mean Platelet Volume 12.2 fL (9.4-12.4); Monocytes # 2.2 K/mcL (0.0-1.3); Monocytes % 14.4 %; Neutrophils # 9.1 K/mcL (1.6-8.9); Nucleated Red Blood Cells 0.1 /100 WBC (0); Platelet Count 130 K/mcL (140-400); Red Cell Distribution Width 15.2 % (11.5-14.5); Segmented Neutrophils % 60.2 %; White Blood Count 15.1 K/mcL (4.3-11.1)
[2021-07-01 01:35] LABS: Hemoglobin 12.8 g/dL (11.5-15.4)
[2021-07-01 01:45] LABS: BUN/Creatinine Ratio 22 (6-26); Blood Urea Nitrogen 23 mg/dL (8-23); Calcium 8.1 mg/dL (8.6-10.3); Carbon Dioxide 26 mEq/L (23-29); Chloride 99 mEq/L (98-107); Glucose 171 mg/dL (70-105); Osmolality,Calculated 286 (280-300); Potassium 3.4 mEq/L (3.5-5.1); Sodium 134 mEq/L (136-145); eGFR For African Americans > 60 (> 60); eGFR For Non-African Americans 51 (> 60)
[2021-07-01] MEDS: *HR* Heparin 5,000 UNIT/ML VIAL SQ SCH ×3 (05:12→20:08)
[2021-07-01] MEDS: D5% in Water 1,000 ML IVC SCH (05:13)
[2021-07-01] MEDS: Thiamine (B-1) 100 MG TABLET PO SCH (09:39)
[2021-07-01] MEDS: levoFLOXacin 750 MG TABLET PO SCH (09:39)
[2021-07-01] MEDS: Aspirin Enteric Coated 81 MG Tablet PO SCH (09:39)
[2021-07-01] MEDS: Insulin DETEMIR 100 UNIT/ML X5UNITS SUBQ SCH ×2 (09:40→20:13)
[2021-07-01] MEDS: Gabapentin 400 MG CAPSULE PO SCH ×3 (09:40→20:07)
[2021-07-01] MEDS: Metoprolol XL (24 HR) Succ 25 MG TAB.ER.24H PO SCH ×2 (09:42→20:08)
[2021-07-01] MEDS: lisinopriL 20 MG TABLET PO SCH (09:42)
[2021-07-01] MEDS: Insulin LISPRO 300 UNITS/3 ML VIAL SUBQ SCH ×4 (09:42→20:16)
[2021-07-01] MEDS: Isosorbide MONOnitrate (24 HR) 60 MG TAB.ER.24H PO SCH (09:42)
[2021-07-01] MEDS: Nystatin POWDER 30 GM BOTTLE TP SCH ×3 (09:43→20:16)
[2021-07-01] MEDS: rOPINIRole 1 MG TABLET PO SCH (20:08)
[2021-07-02 01:53] LABS: Basophils # 0.1 K/mcL (0.0-0.2); Basophils % 0.3 %; Eosinophils # 0.4 K/mcL (0.0-0.6); Eosinophils % 2.7 %; Hematocrit 38.8 % (35.3-44.9); Hemoglobin 12.5 g/dL (11.5-15.4); Immature Granulocytes % 2.3 % (0-4); Lymphocytes # 2.3 K/mcL (0.6-4.6); Lymphocytes % 15.2 %; Mean Corpuscular HGB Conc 32.2 g/dL (31.6-35.5); Mean Corpuscular Hemoglobin 29.2 pg (28.0-33.3); Mean Corpuscular Volume 90.7 fL (83.0-100.0); Mean Platelet Volume 12.6 fL (9.4-12.4); Monocytes # 2.2 K/mcL (0.0-1.3); Monocytes % 14.9 %; Neutrophils # 9.5 K/mcL (1.6-8.9); Platelet Count 131 K/mcL (140-400); Red Blood Count 4.28 M/mcL (3.82-4.97); Red Cell Distribution Width 14.9 % (11.5-14.5); Segmented Neutrophils % 64.6 %; White Blood Count 14.8 K/mcL (4.3-11.1)
[2021-07-02 02:13] LABS: Calcium 8.6 mg/dL (8.6-10.3); Potassium 3.7 mEq/L (3.5-5.1)
[2021-07-02] MEDS: *HR* Heparin 5,000 UNIT/ML VIAL SQ SCH ×3 (05:19→21:15)
[2021-07-02] MEDS ORDERED: 0.9 % Sodium Chloride 1,000 ML IVC SCH (07:30)
[2021-07-02] MEDS: Insulin LISPRO 300 UNITS/3 ML VIAL SUBQ SCH ×4 (08:17→21:28)
[2021-07-02] MEDS: Thiamine (B-1) 100 MG TABLET PO SCH (08:27)
[2021-07-02] MEDS: Metoprolol XL (24 HR) Succ 25 MG TAB.ER.24H PO SCH ×2 (08:27→21:15)
[2021-07-02] MEDS: Gabapentin 400 MG CAPSULE PO SCH ×3 (08:27→21:14)
[2021-07-02] MEDS: lisinopriL 20 MG TABLET PO SCH (08:28)
[2021-07-02] MEDS: Isosorbide MONOnitrate (24 HR) 60 MG TAB.ER.24H PO SCH (08:28)
[2021-07-02] MEDS: Aspirin Enteric Coated 81 MG Tablet PO SCH (08:28)
[2021-07-02] MEDS: Nystatin POWDER 30 GM BOTTLE TP SCH ×3 (08:34→21:16)
[2021-07-02] MEDS: Insulin DETEMIR 100 UNIT/ML X5UNITS SUBQ SCH ×2 (11:19→21:26)
[2021-07-02] MEDS: rOPINIRole 1 MG TABLET PO SCH (21:15)
[2021-07-03 02:24] LABS: Basophils % 0.2 %; Eosinophils # 0.4 K/mcL (0.0-0.6); Eosinophils % 2.8 %; Hematocrit 36.4 % (35.3-44.9); Hemoglobin 11.4 g/dL (11.5-15.4); Immature Granulocytes % 1.2 % (0-4); Lymphocytes # 1.6 K/mcL (0.6-4.6); Lymphocytes % 12.1 %; Mean Corpuscular HGB Conc 31.3 g/dL (31.6-35.5); Mean Corpuscular Hemoglobin 28.7 pg (28.0-33.3); Mean Corpuscular Volume 91.7 fL (83.0-100.0); Mean Platelet Volume 12.2 fL (9.4-12.4); Monocytes # 1.5 K/mcL (0.0-1.3); Neutrophils # 9.2 K/mcL (1.6-8.9); Platelet Count 151 K/mcL (140-400); Red Blood Count 3.97 M/mcL (3.82-4.97); Red Cell Distribution Width 14.8 % (11.5-14.5); Segmented Neutrophils % 71.7 %; White Blood Count 12.9 K/mcL (4.3-11.1)
[2021-07-03 02:47] LABS: BUN/Creatinine Ratio 24 (6-26); Blood Urea Nitrogen 19 mg/dL (8-23); Calcium 8.6 mg/dL (8.6-10.3); Carbon Dioxide 27 mEq/L (23-29); Chloride 103 mEq/L (98-107); Glucose 286 mg/dL (70-105); Osmolality,Calculated 299 (280-300); Potassium 4.2 mEq/L (3.5-5.1); Sodium 138 mEq/L (136-145); eGFR For African Americans > 60 (> 60); eGFR For Non-African Americans > 60 (> 60)
[2021-07-03] MEDS: *HR* Heparin 5,000 UNIT/ML VIAL SQ SCH ×3 (05:51→20:54)
[2021-07-03] MEDS: Insulin LISPRO 300 UNITS/3 ML VIAL SUBQ SCH ×4 (08:16→21:01)
[2021-07-03] MEDS: Aspirin Enteric Coated 81 MG Tablet PO SCH (08:19)
[2021-07-03] MEDS: Metoprolol XL (24 HR) Succ 25 MG TAB.ER.24H PO SCH ×2 (08:19→20:53)
[2021-07-03] MEDS: lisinopriL 20 MG TABLET PO SCH (08:19)
[2021-07-03] MEDS: Gabapentin 400 MG CAPSULE PO SCH ×3 (08:19→20:53)
[2021-07-03] MEDS: levoFLOXacin 750 MG TABLET PO SCH (08:19)
[2021-07-03] MEDS: Thiamine (B-1) 100 MG TABLET PO SCH (08:19)
[2021-07-03] MEDS: Isosorbide MONOnitrate (24 HR) 60 MG TAB.ER.24H PO SCH (08:21)
[2021-07-03] MEDS: Insulin DETEMIR 100 UNIT/ML X5UNITS SUBQ SCH ×2 (09:00→20:54)
[2021-07-03] MEDS: Nystatin POWDER 30 GM BOTTLE TP SCH ×3 (10:28→20:59)
[2021-07-03] MEDS: rOPINIRole 1 MG TABLET PO SCH (20:53)
[2021-07-04] MEDS: *HR* Heparin 5,000 UNIT/ML VIAL SQ SCH ×3 (05:42→21:18)
[2021-07-04] MEDS: Insulin LISPRO 300 UNITS/3 ML VIAL SUBQ SCH ×4 (07:50→21:17)
[2021-07-04] MEDS: Isosorbide MONOnitrate (24 HR) 60 MG TAB.ER.24H PO SCH (08:06)
[2021-07-04] MEDS: Thiamine (B-1) 100 MG TABLET PO SCH (08:06)
[2021-07-04] MEDS: Gabapentin 400 MG CAPSULE PO SCH ×3 (08:06→21:18)
[2021-07-04] MEDS: lisinopriL 20 MG TABLET PO SCH (08:06)
[2021-07-04] MEDS: Metoprolol XL (24 HR) Succ 25 MG TAB.ER.24H PO SCH ×2 (08:06→21:18)
[2021-07-04] MEDS: Aspirin Enteric Coated 81 MG Tablet PO SCH (08:06)
[2021-07-04] MEDS: levoFLOXacin 750 MG TABLET PO SCH (12:37)
[2021-07-04] MEDS: Nystatin POWDER 30 GM BOTTLE TP SCH ×3 (12:38→21:19)
[2021-07-04] MEDS: Insulin DETEMIR 100 UNIT/ML X5UNITS SUBQ SCH ×2 (12:38→21:19)
[2021-07-04] MEDS: *HR* LORazepam 2 MG/ML VIAL IVP PRN (17:23)
[2021-07-04] MEDS: rOPINIRole 1 MG TABLET PO SCH (21:18)
[2021-07-05] MEDS: *HR* Heparin 5,000 UNIT/ML VIAL SQ SCH ×3 (06:32→20:35)
[2021-07-05] MEDS: Insulin LISPRO 300 UNITS/3 ML VIAL SUBQ SCH ×4 (08:02→20:35)
[2021-07-05] MEDS: Gabapentin 400 MG CAPSULE PO SCH ×3 (08:38→20:36)
[2021-07-05] MEDS: Thiamine (B-1) 100 MG TABLET PO SCH (08:38)
[2021-07-05] MEDS: lisinopriL 20 MG TABLET PO SCH (08:38)
[2021-07-05] MEDS: Aspirin Enteric Coated 81 MG Tablet PO SCH (08:38)
[2021-07-05] MEDS: Isosorbide MONOnitrate (24 HR) 60 MG TAB.ER.24H PO SCH (08:38)
[2021-07-05] MEDS: Metoprolol XL (24 HR) Succ 25 MG TAB.ER.24H PO SCH ×2 (08:38→20:36)
[2021-07-05] MEDS: levoFLOXacin 750 MG TABLET PO SCH (08:38)
[2021-07-05] MEDS: Nystatin POWDER 30 GM BOTTLE TP SCH ×3 (08:39→20:36)
[2021-07-05] MEDS: Insulin DETEMIR 100 UNIT/ML X5UNITS SUBQ SCH ×2 (08:43→20:36)
[2021-07-05] MEDS: rOPINIRole 1 MG TABLET PO SCH (20:36)
[2021-07-06] MEDS: *HR* Heparin 5,000 UNIT/ML VIAL SQ SCH ×2 (04:39→12:23)
[2021-07-06] MEDS: lisinopriL 20 MG TABLET PO SCH (09:00)
[2021-07-06] MEDS: Thiamine (B-1) 100 MG TABLET PO SCH (09:00)
[2021-07-06] MEDS: Isosorbide MONOnitrate (24 HR) 60 MG TAB.ER.24H PO SCH (09:00)
[2021-07-06] MEDS: Aspirin Enteric Coated 81 MG Tablet PO SCH (09:00)
[2021-07-06] MEDS: levoFLOXacin 750 MG TABLET PO SCH (09:01)
[2021-07-06] MEDS: Nystatin POWDER 30 GM BOTTLE TP SCH ×2 (09:01→16:23)
[2021-07-06] MEDS: Gabapentin 400 MG CAPSULE PO SCH ×2 (09:01→16:22)
[2021-07-06] MEDS: Insulin LISPRO 300 UNITS/3 ML VIAL SUBQ SCH ×3 (09:02→17:26)
[2021-07-06] MEDS: Metoprolol XL (24 HR) Succ 25 MG TAB.ER.24H PO SCH (09:02)
[2021-07-06] MEDS: Insulin DETEMIR 100 UNIT/ML X5UNITS SUBQ SCH (09:09)
[2021-07-06 11:34] VITALS: BP 145/69; PULSE 80; TEMP 98.2; O2SAT 97
[2021-07-06 11:42] LABS: Influenza A PCR Negative (Negative); Influenza B PCR Negative (Negative); Resp. Syncytial Virus PCR Negative (Negative)
[2021-07-06 11:45] LABS: SARS-CoV-2 by PCR (In House) Negative (Negative)
== END 2021-07-06 18:09 | DRG 871 ==
LOC: SUATTDRO → 2ANU 02:18 → EMEROOARM 02:18 → SUATTDRO 17:23 → 2ANU 18:18
PROVIDERS: ADMIT Internal Medicine; ATTEND Pharmacist

== ENCOUNTER 2022-01-04 17:29 | Observation (INO) ==
[2022-01-04] MEDS ORDERED: ChlorproMAZINE 25 MG/ML AMPUL IM ONE (19:51)
[2022-01-04 20:10] LABS: Basophils # 0.1 K/mcL (0.0-0.2); Basophils % 0.6 %; Eosinophils # 0.4 K/mcL (0.0-0.6); Eosinophils % 2.5 %; Immature Granulocytes % 0.2 % (0-4); Lymphocytes # 4.5 K/mcL (0.6-4.6); Lymphocytes % 31.8 %; Mean Corpuscular HGB Conc 32.4 g/dL (31.6-35.5); Mean Corpuscular Volume 89.4 fL (83.0-100.0); Mean Platelet Volume 11.5 fL (9.4-12.4); Monocytes # 1.5 K/mcL (0.0-1.3); Monocytes % 10.6 %; Neutrophils # 7.6 K/mcL (1.6-8.9); Platelet Count 224 K/mcL (140-400); Red Blood Count 4.14 M/mcL (3.82-4.97); Red Cell Distribution Width 15.6 % (11.5-14.5); Segmented Neutrophils % 54.3 %
[2022-01-04 20:50] LABS: Troponin I 0.07 ng/mL (< 0.04)
[2022-01-04] MEDS ORDERED: 0.9 % Sodium Chloride 1,000 ML IV ONE (22:00)
[2022-01-04 22:04] LABS: Alanine Aminotransferase 22 Units/L (7-52); Albumin 4.3 g/dL (3.5-5.7); Albumin/Globulin Ratio 1.5 (1.1-2.2); Alkaline Phosphatase 55 Units/L (34-104); Aspartate Amino Transferase 45 Units/L (13-39); BUN/Creatinine Ratio 27 (6-26); Bilirubin,Indirect 0.5 mg/dL (0.0-1.0); Bilirubin,Total 0.5 mg/dL (0.3-1.0); Blood Urea Nitrogen 26 mg/dL (8-23); Carbon Dioxide 21 mEq/L (23-29); Chloride 100 mEq/L (98-107); Globulin 2.9 g/dL (2.4-3.5); Glucose 57 mg/dL (70-105); Lipase 6 Units/L (11-82); Osmolality,Calculated 282 (280-300); Potassium 6.4 mEq/L (3.5-5.1); Sodium 135 mEq/L (136-145); Total Protein 7.2 g/dL (6.4-8.9); eGFR For African Americans > 60 (> 60); eGFR For Non-African Americans 56 (> 60)
[2022-01-04 22:49] LABS: Bilirubin,Urine Negative (Negative); Blood,Urine Negative (Negative); Clarity,Urine Clear (Clear); Color,Urine Yellow (Yellow); Glucose,Urine (UA) Normal (Normal); Ketones,Urine Negative (Negative); Leukocyte Esterase,Urine Trace (Negative); Nitrite,Urine Negative (Negative); Protein,Urine 30 mg/dL (Neg-Trace); Specific Gravity,Urine >= 1.030 (1.010-1.025); Urobilinogen,Urine Normal (Normal)
[2022-01-04 22:50] LABS: Squamous Epithelial Cell,Urine Many per hpf (None-Few)
[2022-01-04 22:51] LABS: Hyaline Casts,Urine None Seen per lpf (None Seen)
[2022-01-04 22:52] LABS: Bacteria,Urine Moderate per hpf (None-Few)
[2022-01-05 00:26] LABS: BUN/Creatinine Ratio 28 (6-26); Blood Urea Nitrogen 25 mg/dL (8-23); Calcium 8.9 mg/dL (8.6-10.3); Carbon Dioxide 30 mEq/L (23-29); Chloride 103 mEq/L (98-107); Glucose 57 mg/dL (70-105); Osmolality,Calculated 292 (280-300); Potassium 4.4 mEq/L (3.5-5.1); Sodium 140 mEq/L (136-145); eGFR For African Americans > 60 (> 60); eGFR For Non-African Americans > 60 (> 60)
[2022-01-05] MEDS ORDERED: Melatonin 3 MG TABLET PO PRN (01:20)
[2022-01-05] MEDS ORDERED: Ondansetron 4 MG/2 ML VIAL IVP PRN (01:20)
[2022-01-05] MEDS ORDERED: Naloxone 0.4 MG/ML INJ IVP PRN (01:20)
[2022-01-05] MEDS ORDERED: Acetaminophen 325 MG TABLET PO PRN (01:20)
[2022-01-05] MEDS ORDERED: Dextrose 4 GM Chewable Tablets PO PRN ×2 (01:45)
[2022-01-05] MEDS ORDERED: D5% in Water 1,000 ML IVC PRN (01:45)
[2022-01-05] MEDS: *HR* Dextrose 50 % in Water (Syg) 50 ML SYRINGE IVP PRN ×2 (02:35→13:59)
[2022-01-05] MEDS ORDERED: *HR* LORazepam 2 MG/ML VIAL IVP ONE ×3 (03:20→13:45)
[2022-01-05] MEDS: cefTRIAXone 1,000 MG in 0.9 % Sodium Chloride 10 ML IVPB SCH ×2 (03:40→04:06)
[2022-01-05] MEDS ORDERED: cefTRIAXone 1,000 MG in 0.9 % Sodium Chloride 10 ML IVP SCH (04:00)
[2022-01-05 06:27] LABS: Hemoglobin 12.2 g/dL (11.5-15.4); Mean Corpuscular HGB Conc 32.1 g/dL (31.6-35.5); Mean Corpuscular Volume 90.5 fL (83.0-100.0); Mean Platelet Volume 11.3 fL (9.4-12.4); Platelet Count 176 K/mcL (140-400); Red Cell Distribution Width 15.8 % (11.5-14.5); White Blood Count 10.2 K/mcL (4.3-11.1)
[2022-01-05] MEDS: Insulin LISPRO 300 UNITS/3 ML VIAL SUBQ SCH ×3 (08:44→16:43)
[2022-01-05] MEDS ORDERED: Gadolinium Contrast Agent (WT Based) IV PRN ×2 (09:14→11:42)
[2022-01-05 09:16] LABS: BUN/Creatinine Ratio 26 (6-26); Blood Urea Nitrogen 20 mg/dL (8-23); Calcium 8.8 mg/dL (8.6-10.3); Carbon Dioxide 28 mEq/L (23-29); Chloride 106 mEq/L (98-107); Glucose 92 mg/dL (70-105); Osmolality,Calculated 292 (280-300); Potassium 4.7 mEq/L (3.5-5.1); Sodium 140 mEq/L (136-145); eGFR For African Americans > 60 (> 60); eGFR For Non-African Americans > 60 (> 60)
[2022-01-05] MEDS ORDERED: Morphine Sulfate 2 MG/ML SYRINGE IVP ONE ×3 (09:32→23:54)
[2022-01-05 10:35] LABS: BUN/Creatinine Ratio 26 (6-26); Blood Urea Nitrogen 19 mg/dL (8-23); Calcium 8.9 mg/dL (8.6-10.3); Carbon Dioxide 30 mEq/L (23-29); Chloride 105 mEq/L (98-107); Glucose 75 mg/dL (70-105); Magnesium 2.5 mg/dL (1.6-2.6); Osmolality,Calculated 293 (280-300); Potassium 4.3 mEq/L (3.5-5.1); Sodium 141 mEq/L (136-145); eGFR For African Americans > 60 (> 60); eGFR For Non-African Americans > 60 (> 60)
[2022-01-05] MEDS: D5% in 0.9% NACL 1,000 ML IVC SCH (16:29)
[2022-01-05] MEDS ORDERED: *HR* HYDROcodone/Acet 5/325 mg TABLET PO PRN (16:43)
[2022-01-05] MEDS: Morphine Sulfate 2 MG/ML SYRINGE IVP PRN (18:16)
[2022-01-05] MEDS ORDERED: *HR* Metoprolol 5 MG/5 ML VIAL IVP SCH (18:21)
[2022-01-05] MEDS: *HR* Metoprolol 5 MG/5 ML VIAL IVP SCH (21:29)
[2022-01-06] MEDS: Morphine Sulfate 2 MG/ML SYRINGE IVP PRN (00:04)
[2022-01-06] MEDS ORDERED: Methyl Salicylate/Menthol 85 APPL/85 GM TUBE TP PRN (01:42)
[2022-01-06] MEDS: cefTRIAXone 1,000 MG in 0.9 % Sodium Chloride 10 ML IVPB SCH (02:06)
[2022-01-06 02:59] LABS: Basophils # 0.1 K/mcL (0.0-0.2); Basophils % 0.6 %; Eosinophils # 0.4 K/mcL (0.0-0.6); Eosinophils % 3.7 %; Hematocrit 39.1 % (35.3-44.9); Hemoglobin 12.7 g/dL (11.5-15.4); Immature Granulocytes % 0.3 % (0-4); Lymphocytes # 2.9 K/mcL (0.6-4.6); Lymphocytes % 27.6 %; Mean Corpuscular HGB Conc 32.5 g/dL (31.6-35.5); Mean Corpuscular Hemoglobin 29.1 pg (28.0-33.3); Mean Corpuscular Volume 89.5 fL (83.0-100.0); Monocytes % 9.8 %; Platelet Count 213 K/mcL (140-400); Red Blood Count 4.37 M/mcL (3.82-4.97); Red Cell Distribution Width 15.3 % (11.5-14.5); White Blood Count 10.4 K/mcL (4.3-11.1)
[2022-01-06 03:29] LABS: Alanine Aminotransferase 13 Units/L (7-52); Albumin 3.8 g/dL (3.5-5.7); Albumin/Globulin Ratio 1.5 (1.1-2.2); Alkaline Phosphatase 58 Units/L (34-104); Aspartate Amino Transferase 15 Units/L (13-39); BUN/Creatinine Ratio 17 (6-26); Bilirubin,Indirect 0.5 mg/dL (0.0-1.0); Bilirubin,Total 0.5 mg/dL (0.3-1.0); Blood Urea Nitrogen 12 mg/dL (8-23); Calcium 9.1 mg/dL (8.6-10.3); Carbon Dioxide 25 mEq/L (23-29); Chloride 106 mEq/L (98-107); Globulin 2.5 g/dL (2.4-3.5); Glucose 131 mg/dL (70-105); Magnesium 2.1 mg/dL (1.6-2.6); Osmolality,Calculated 292 (280-300); Potassium 4.1 mEq/L (3.5-5.1); Sodium 140 mEq/L (136-145); Total Protein 6.3 g/dL (6.4-8.9); eGFR For African Americans > 60 (> 60); eGFR For Non-African Americans > 60 (> 60)
[2022-01-06 03:39] VITALS: O2SAT 94
[2022-01-06 03:39] LABS: Thyroid Stimulating Hormone 1.571 mcIU/mL (0.340-5.600)
[2022-01-06] MEDS: *HR* Metoprolol 5 MG/5 ML VIAL IVP SCH ×2 (05:11→09:07)
[2022-01-06] MEDS ORDERED: *HR* Enoxaparin 40 MG/0.4 ML SYRINGE SQ SCH (07:00)
[2022-01-06 07:41] VITALS: BP 150/71; PULSE 88; TEMP 97.4
[2022-01-06] MEDS: Insulin LISPRO 300 UNITS/3 ML VIAL SUBQ SCH ×2 (08:18→11:15)
[2022-01-06] MEDS ORDERED: Perflutren Lipid Microsphere 1.3 ML in 0.9 % Sodium Chloride 8.7 ML IVP PRN (08:54)
[2022-01-06] MEDS: D5% in 0.9% NACL 1,000 ML IVC SCH (09:07)
== END 2022-01-06 12:00 | disposition home or self-care (01) ==
LOC: EMEROOARM 17:29 → 2ANU 17:29 → SUATTDRO 01-05 01:03 → 2ANU 01-05 02:16
PROVIDERS: ADMIT Student in an Organized Health Care Education/Training Program; ATTEND Pharmacist

== ENCOUNTER 2022-06-09 06:28 | Inpatient (IN) ==
[2022-06-09] MEDS ORDERED: 0.9 % Sodium Chloride 1,000 ML ONE ×2 (06:37→07:10)
[2022-06-09] MEDS ORDERED: Nitroglycerin 1,000 MCG/5 ML VIAL IV ONE (07:10)
[2022-06-09] MEDS ORDERED: Iopamidol - 370 200 ML INFUS..BTL ONE (07:10)
[2022-06-09] MEDS ORDERED: *HR* Heparin 10,000 UNIT/10 ML VIAL ONE (07:10)
[2022-06-09] MEDS ORDERED: Heparin 1,000 UNITS/500 mL 500 ML ONE (07:10)
[2022-06-09] MEDS ORDERED: *HR* FentaNYL (PF) 100 MCG/2 ML VIAL ONE (07:21)
[2022-06-09] MEDS ORDERED: *HR* Midazolam HCl 2 MG/2 ML VIAL ONE (07:21)
[2022-06-09] MEDS ORDERED: Sennosides/Docusate Sodium TABLET PO PRN (08:37)
[2022-06-09] MEDS ORDERED: Nitroglycerin 0.4 MG TAB.SUBL SL PRN (08:37)
[2022-06-09] MEDS ORDERED: Aspirin Enteric Coated 81 MG Tablet PO SCH (09:00)
[2022-06-09] MEDS ORDERED: MAG BARK PO SCH (09:00)
[2022-06-09] MEDS ORDERED: BLK COHOSH PO SCH (09:00)
[2022-06-09] MEDS ORDERED: [UNRECOGNIZED DRUG - OTHER] PO SCH (09:00)
[2022-06-09] MEDS ORDERED: NON-FORMULARY MEDICATION 1 EACH EACH (Atorvastatin Calcium 80 MG Tablet) PO SCH (09:00)
[2022-06-09] MEDS ORDERED: SOY ISOFLA PO SCH (09:00)
[2022-06-09] MEDS: Aspirin 81 MG TAB.CHEW PO SCH (09:33)
[2022-06-09] MEDS: Pregabalin 75 MG CAPSULE PO SCH ×3 (09:33→19:36)
[2022-06-09] MEDS: Metoprolol XL (24 HR) Succ 25 MG TAB.ER.24H PO SCH ×2 (09:33→19:36)
[2022-06-09] MEDS: Isosorbide MONOnitrate (24 HR) 60 MG TAB.ER.24H PO SCH (09:34)
[2022-06-09] MEDS: Furosemide 20 MG TABLET PO SCH (09:39)
[2022-06-09] MEDS: ESTRADIOL APPL VG SCH (09:48)
[2022-06-09] MEDS: *HR* OxyCODONE/APAP 10/325 TABLET PO PRN ×2 (12:52→19:37)
[2022-06-09 13:45] LABS: Basophils # 0.1 K/mcL (0.0-0.2); Basophils % 0.9 %; Eosinophils # 0.3 K/mcL (0.0-0.6); Eosinophils % 3.6 %; Hemoglobin 12.9 g/dL (11.5-15.4); Immature Granulocytes % 0.2 % (0-4); Lymphocytes # 2.7 K/mcL (0.6-4.6); Lymphocytes % 31.3 %; Mean Corpuscular HGB Conc 32.3 g/dL (31.6-35.5); Mean Corpuscular Volume 89.9 fL (83.0-100.0); Mean Platelet Volume 11.4 fL (9.4-12.4); Monocytes # 0.7 K/mcL (0.0-1.3); Monocytes % 8.2 %; Neutrophils # 4.9 K/mcL (1.6-8.9); Platelet Count 227 K/mcL (140-400); Red Blood Count 4.45 M/mcL (3.82-4.97); Red Cell Distribution Width 14.4 % (11.5-14.5); Segmented Neutrophils % 55.8 %; White Blood Count 8.7 K/mcL (4.3-11.1)
[2022-06-09 13:53] LABS: Alanine Aminotransferase 12 Units/L (7-52); Albumin/Globulin Ratio 1.5 (1.1-2.2); Alkaline Phosphatase 85 Units/L (34-104); Aspartate Amino Transferase 14 Units/L (13-39); BUN/Creatinine Ratio 21 (6-26); Bilirubin,Total 0.4 mg/dL (0.3-1.0); Blood Urea Nitrogen 13 mg/dL (8-23); Calcium 8.9 mg/dL (8.6-10.3); Carbon Dioxide 27 mEq/L (23-29); Chloride 102 mEq/L (98-107); Globulin 2.6 g/dL (2.4-3.5); Glucose 295 mg/dL (70-105); Osmolality,Calculated 293 (280-300); Potassium 3.8 mEq/L (3.5-5.1); Sodium 136 mEq/L (136-145); Total Protein 6.6 g/dL (6.4-8.9)
[2022-06-09] MEDS: Nystatin POWDER 30 GM BOTTLE TP SCH ×3 (15:55→19:37)
[2022-06-09] MEDS ORDERED: tiZANidine 4 MG TABLET PO ONE (21:24)
[2022-06-09] MEDS ORDERED: Trolamine Salicylate/Aloe Vera 85 APPL/85 GM TUBE TP PRN (23:03)
[2022-06-10] MEDS: *HR* OxyCODONE/APAP 10/325 TABLET PO PRN ×2 (01:41→09:49)
[2022-06-10] MEDS: Isosorbide MONOnitrate (24 HR) 60 MG TAB.ER.24H PO SCH (09:49)
[2022-06-10] MEDS: Metoprolol XL (24 HR) Succ 25 MG TAB.ER.24H PO SCH (09:50)
[2022-06-10] MEDS: Pregabalin 75 MG CAPSULE PO SCH (09:50)
[2022-06-10] MEDS: Aspirin 81 MG TAB.CHEW PO SCH (09:50)
[2022-06-10] MEDS: Insulin LISPRO 300 UNITS/3 ML VIAL SUBQ SCH ×2 (09:54→13:17)
[2022-06-10] MEDS: Furosemide 20 MG TABLET PO SCH (09:55)
[2022-06-10] MEDS: Nystatin POWDER 30 GM BOTTLE TP SCH (09:55)
[2022-06-10] MEDS: ESTRADIOL APPL VG SCH (09:56)
[2022-06-10 12:51] VITALS: BP 131/71; PULSE 74; TEMP 97.6; O2SAT 94
[2022-06-10] MEDS ORDERED: Insulin LISPRO 300 UNITS/3 ML VIAL SUBQ SCH (21:00)
[2022-06-11] MEDS ORDERED: (Dulaglutide [Trulicity] 1.5 MG/0.5 ML Pen.Injctr) SUBQ SCH (09:00)
[2022-06-12] MEDS ORDERED: Ergocalciferol (VIT D2) 50,000 UNIT (1.25MG) CAP PO SCH (09:00)
== END 2022-06-10 15:30 | disposition short-term general hospital (02) | DRG 281 ==
LOC: INVDIALAB 06:28 → 2ANU 09:19
PROVIDERS: ADMIT Internal Medicine; ATTEND Internal Medicine